=== PATIENT | male | born 1950 | race Caucasian/White ===

== ENCOUNTER → 2016-04-12 | Outpatient (REF) | payer MEDICARE, OTHER ==
[~2016-04-12] MED LIST: ACET65TA OR; ALBUTEROL INH; ASPI81TA11 PO; ATEN25TA; BABY81CH PO; BACITAB3 PO; BACT800T5 PO; BACTROBAN; COLA100C PO; COLC1TAB5 PO; CORE25TA PO; DOXY100T OR; FERR325T69 PO; FURO20TA2 PO; GLUC1000 PO; Garlic PO; HYDR12.56 PO; KEFL500C7 PO; Krill Oil; LASI40TA OR; LEVA500T; LEVO500T PO; LOPR50TA OR; LOSA25TA8 PO; LOSA50TA20 PO; LUCENTIS INJ; METF500T PO; METO25TAB PO; MULTCAP PO; NEUR300C OR; Niacin; OMEGCAP8 PO; OMEP20TA7 OR; PERCOCET PO; POTA20TA2 OR; SALI0.653; SENN-22 PO; SIMV40TA2 PO; VITA500C24 PO; WARF-23 PO; ZOCO20TA PO; ZYVO100T PO; [UNRECOGNIZED DRUG - OTHER]
[2016-04-12 17:34] LABS: ALBUMIN 3.6 GM/DL (3.2-5.2); ALKALINE PHOSPHATASE 96 U/L (45-117); ALT/SGPT 19 U/L (12-78); ANION GAP 9 MEQ/L (8-16); AST/SGOT 12 U/L (15-37); BILIRUBIN,TOTAL 0.3 MG/DL (0.2-1.0); BLOOD UREA NITROGEN 25 MG/DL (7-18); CALCIUM LEVEL 8.9 MG/DL (8.8-10.2); CARBON DIOXIDE LEVEL 26 MEQ/L (21-32); CHLORIDE LEVEL 106 MEQ/L (98-107); CREATININE FOR GFR 1.12 MG/DL (0.70-1.30); GLOMERULAR FILTRATION RATE > 60.0 (>49); GLUCOSE, FASTING 196 MG/DL (80-110); POTASSIUM SERUM 4.9 MEQ/L (3.5-5.1); SODIUM LEVEL 141 MEQ/L (136-145); TOTAL PROTEIN 7.6 GM/DL (6.4-8.2); URIC ACID 8.3 MG/DL (3.5-7.2)
[2016-04-12 18:17] LABS: BASO % 0.3 % (0.0-1.0); EOS # 0.2 K/mm3 (0.0-0.50); EOS % 2.1 % (0.0-3.0); LARGE UNSTAINED CELL # 0.1 K/mm3 (0.0-0.4); LARGE UNSTAINED CELL % 0.9 % (0.0-4.0); LYMPH # 2.5 K/mm3 (1.5-4.5); LYMPH % 20.4 % (24.0-44.0); MEAN CORPUSCULAR HEMOGLOBIN 29.2 pg (27.0-33.0); MEAN CORPUSCULAR HGB CONC 33.2 g/dl (32.0-36.5); MEAN CORPUSCULAR VOLUME 87.8 fl (80.0-96.0); MONO # 0.8 K/mm3 (0.0-0.8); MONO % 6.6 % (0.0-5.0); NEUTROPHILS # 8.3 K/mm3 (1.8-7.7); NEUTROPHILS % 69.7 % (36.0-66.0); PLATELET COUNT, AUTOMATED 317 k/mm3 (150-450); RED CELL DISTRIBUTION WIDTH 12.9 % (11.5-14.5); WHITE BLOOD COUNT 11.9 K/mm3 (4.0-10.0)
== END ==
LOC: M SFHCCLAY 13:29
PROVIDERS: ATTEND Family Medicine
DX: D64.9 Anemia, unspecified (principal); E11.29 Type 2 diabetes mellitus with other diabetic kidney complication; M10.9 Gout, unspecified
CPT/HCPCS: 80053; 83036; 83540; 84550; 85025; G0463

== ENCOUNTER → 2016-09-15 | Outpatient (REF) | payer MEDICARE, OTHER ==
[~2016-09-15] MED LIST changes: +ASPI-101 PO; -ASPI81TA11 PO; +BACITAB PO; -BACITAB3 PO; -COLA100C PO; +COLA100C5 PO; +COLC1TAB14 PO; -COLC1TAB5 PO; +KEFL500C17 PO; -KEFL500C7 PO; -METF500T PO; +METF500T13 PO; +SALI0.6523; -SALI0.653
== END ==
LOC: M SFHCCLAY 14:34
PROVIDERS: ATTEND Family Medicine
DX: D64.9 Anemia, unspecified (principal); E11.29 Type 2 diabetes mellitus with other diabetic kidney complication

== ENCOUNTER → 2016-12-26 | Outpatient (CLI) | payer MEDICARE, OTHER ==
[2016-12-26 11:49] LABS: BASO # 0.1 10^3/uL (0.0-0.2); BASO % 0.4 % (0.0-1.0); EOS # 0.3 10^3/uL (0.0-0.50); IMMATURE GRANULOCYTE % 0.5 % (0-0); LYMPH # 3.5 10^3/uL (1.5-4.5); LYMPH % 27.7 % (24.0-44.0); MEAN CORPUSCULAR HEMOGLOBIN 28.5 pg (27.0-33.0); MEAN CORPUSCULAR HGB CONC 32.8 g/dl (32.0-36.5); MONO % 7.7 % (0.0-5.0); NEUTROPHILS # 7.8 10^3/uL (1.8-7.7); NEUTROPHILS % 61.7 % (36.0-66.0); PLATELET COUNT, AUTOMATED 268 10^3/uL (150-450); RED CELL DISTRIBUTION WIDTH 12.9 % (11.5-14.5); WHITE BLOOD COUNT 12.6 10^3/uL (4.0-10.0)
[2016-12-26 12:16] LABS: ALBUMIN 3.6 GM/DL (3.2-5.2); ALBUMIN/GLOBULIN RATIO 0.92 (1.00-1.93); ALKALINE PHOSPHATASE 96 U/L (45-117); ALT/SGPT 16 U/L (12-78); ANION GAP 10 MEQ/L (8-16); AST/SGOT 6 U/L (7-37); BILIRUBIN,TOTAL 0.3 MG/DL (0.2-1.0); BLOOD UREA NITROGEN 24 MG/DL (7-18); CALCIUM LEVEL 8.9 MG/DL (8.8-10.2); CARBON DIOXIDE LEVEL 23 MEQ/L (21-32); CHLORIDE LEVEL 108 MEQ/L (98-107); CREATININE FOR GFR 1.06 MG/DL (0.70-1.30); GLOMERULAR FILTRATION RATE > 60.0 (>49); GLUCOSE, FASTING 155 MG/DL (80-110); POTASSIUM SERUM 4.7 MEQ/L (3.5-5.1); SODIUM LEVEL 141 MEQ/L (136-145); TOTAL PROTEIN 7.5 GM/DL (6.4-8.2)
== END ==
LOC: M LAB 10:43
PROVIDERS: ATTEND Family Medicine
DX: D64.9 Anemia, unspecified (principal); E11.29 Type 2 diabetes mellitus with other diabetic kidney complication; N18.9 Chronic kidney disease, unspecified

== ENCOUNTER → 2017-05-08 | Outpatient (REF) | payer MEDICARE, OTHER ==
[2017-05-09 12:34] LABS: BASO # 0.1 10^3/uL (0.0-0.2); BASO % 0.5 % (0.0-1.0); EOS # 0.3 10^3/uL (0.0-0.50); EOS % 2.3 % (0.0-3.0); HEMATOCRIT 36.4 % (42.0-52.0); IMMATURE GRANULOCYTE % 0.5 % (0-3.0); LYMPH # 3.4 10^3/uL (1.5-4.5); LYMPH % 27.8 % (24.0-44.0); MEAN CORPUSCULAR HEMOGLOBIN 28.9 pg (27.0-33.0); MEAN CORPUSCULAR VOLUME 87.7 fl (80.0-96.0); MONO % 7.8 % (0.0-5.0); NEUTROPHILS # 7.5 10^3/uL (1.8-7.7); NEUTROPHILS % 61.1 % (36.0-66.0); PLATELET COUNT, AUTOMATED 257 10^3/uL (150-450); RED BLOOD COUNT 4.15 10^6/uL (4.30-6.10); RED CELL DISTRIBUTION WIDTH 12.8 % (11.5-14.5); WHITE BLOOD COUNT 12.3 10^3/uL (4.0-10.0)
[2017-05-09 13:14] LABS: ESTIMATED AVERAGE GLUCOSE 209 MG/DL (60-110); HEMOGLOBIN A1c 8.9 %
[2017-05-09 13:47] LABS: ALBUMIN 3.7 GM/DL (3.2-5.2); ALBUMIN/GLOBULIN RATIO 0.97 (1.00-1.93); ALKALINE PHOSPHATASE 82 U/L (45-117); ALT/SGPT 21 U/L (12-78); ANION GAP 12 MEQ/L (8-16); AST/SGOT 12 U/L (7-37); BILIRUBIN,TOTAL 0.3 MG/DL (0.2-1.0); BLOOD UREA NITROGEN 22 MG/DL (7-18); CALCIUM LEVEL 9.2 MG/DL (8.8-10.2); CARBON DIOXIDE LEVEL 21 MEQ/L (21-32); CHLORIDE LEVEL 105 MEQ/L (98-107); CHOLESTEROL LEVEL 91 MG/DL (<200); GLOMERULAR FILTRATION RATE > 60.0 (>49); GLUCOSE, FASTING 188 MG/DL (70-100); HDL CHOLESTEROL 26 MG/DL (>40); IRON (FE) 59 UG/DL (65-175); LDL CHOLESTEROL 28.8 MG/DL (<100); NON-HDL-C 65 MG/DL; SODIUM LEVEL 138 MEQ/L (136-145); TOTAL PROTEIN 7.5 GM/DL (6.4-8.2); TRIGLYCERIDES LEVEL 181 MG/DL (<150); URIC ACID 9.4 MG/DL (3.5-7.2)
[2017-05-09 13:51] LABS: POTASSIUM SERUM 5.3 MEQ/L (3.5-5.1)
== END ==
LOC: M SFHCCLAY 14:58
DX: D64.9 Anemia, unspecified (principal); E11.29 Type 2 diabetes mellitus with other diabetic kidney complication; M10.9 Gout, unspecified
CPT/HCPCS: 83540

== ENCOUNTER → 2017-05-08 | Outpatient (REF) | payer MEDICARE, OTHER ==
[2017-05-09 13:29] LABS: BLOOD UREA NITROGEN 21 MG/DL (7-18)
[2017-05-09 13:29] LABS: CREATININE FOR GFR 1.07 MG/DL (0.70-1.30); GLOMERULAR FILTRATION RATE > 60.0 (>49)
== END ==
LOC: M SFHCCLAY 05-09 11:31
DX: M10.9 Gout, unspecified (principal); D64.9 Anemia, unspecified; E11.29 Type 2 diabetes mellitus with other diabetic kidney complication; I70.211 Atherosclerosis of native arteries of extremities with intermittent claudication, right leg

== ENCOUNTER → 2017-05-08 | Outpatient (REF) | payer MEDICARE, OTHER ==
[2017-05-09 12:36] LABS: HEMATOCRIT 36.4 % (42.0-52.0); MEAN CORPUSCULAR HEMOGLOBIN 28.9 pg (27.0-33.0); MEAN CORPUSCULAR VOLUME 87.7 fl (80.0-96.0); PLATELET COUNT, AUTOMATED 249 10^3/uL (150-450); RED BLOOD COUNT 4.15 10^6/uL (4.30-6.10); RED CELL DISTRIBUTION WIDTH 12.9 % (11.5-14.5); WHITE BLOOD COUNT 11.8 10^3/uL (4.0-10.0)
[2017-05-09 13:34] LABS: ANION GAP 13 MEQ/L (8-16); BLOOD UREA NITROGEN 21 MG/DL (7-18); CALCIUM LEVEL 8.9 MG/DL (8.8-10.2); CARBON DIOXIDE LEVEL 20 MEQ/L (21-32); CHLORIDE LEVEL 106 MEQ/L (98-107); CHOLESTEROL LEVEL 84 MG/DL (<200); CREATININE FOR GFR 1.11 MG/DL (0.70-1.30); GLOMERULAR FILTRATION RATE > 60.0 (>49); GLUCOSE, FASTING 187 MG/DL (70-100); HDL CHOLESTEROL 26 MG/DL (>40); LDL CHOLESTEROL 21.4 MG/DL (<100); NON-HDL-C 58 MG/DL; SODIUM LEVEL 139 MEQ/L (136-145); TRIGLYCERIDES LEVEL 183 MG/DL (<150)
[2017-05-09 13:37] LABS: POTASSIUM SERUM 5.3 MEQ/L (3.5-5.1)
== END ==
LOC: M LAB REF 05-09 11:41
DX: I73.9 Peripheral vascular disease, unspecified (principal); E11.51 Type 2 diabetes mellitus with diabetic peripheral angiopathy without gangrene; I48.0 Paroxysmal atrial fibrillation; I10 Essential (primary) hypertension; E78.5 Hyperlipidemia, unspecified; Z95.5 Presence of coronary angioplasty implant and graft

== ENCOUNTER → 2017-05-19 | Outpatient (CLI) | payer MEDICARE, OTHER ==
[2017-05-19 13:05] LABS: BLOOD UREA NITROGEN 22 MG/DL (7-18)
[2017-05-19 13:05] LABS: CREATININE FOR GFR 1.12 MG/DL (0.70-1.30); GLOMERULAR FILTRATION RATE > 60.0 (>49)
== END ==
LOC: M LAB 11:25
DX: I65.23 Occlusion and stenosis of bilateral carotid arteries (principal)
CPT/HCPCS: 82565

== ENCOUNTER → 2017-09-01 | Outpatient (REF) | payer MEDICARE, OTHER ==
[2017-09-01 17:37] LABS: ANION GAP 10 MEQ/L (8-16); BLOOD UREA NITROGEN 25 MG/DL (7-18); CALCIUM LEVEL 9.1 MG/DL (8.8-10.2); CARBON DIOXIDE LEVEL 25 MEQ/L (21-32); CHLORIDE LEVEL 104 MEQ/L (98-107); GLOMERULAR FILTRATION RATE 58.4 (>49); GLUCOSE, FASTING 296 MG/DL (70-100); SODIUM LEVEL 139 MEQ/L (136-145)
[2017-09-01 17:42] LABS: ESTIMATED AVERAGE GLUCOSE 192 MG/DL (60-110); HEMOGLOBIN A1c 8.3 %
== END ==
LOC: M SFHCCLAY 10:39
DX: E11.29 Type 2 diabetes mellitus with other diabetic kidney complication (principal)
CPT/HCPCS: 83036

== ENCOUNTER → 2017-12-19 | Outpatient (REF) | payer MEDICARE, OTHER | LOC: M SFHCCLAY 15:52 | DX: E11.29 Type 2 diabetes mellitus with other diabetic kidney complication (principal); D64.9 Anemia, unspecified; M10.9 Gout, unspecified; Z53.8 Procedure and treatment not carried out for other reasons ==

== ENCOUNTER → 2018-06-04 | Outpatient (REF) | payer MEDICARE, OTHER ==
[~2018-06-04] MED LIST changes: -ASPI-101 PO; +ASPI-225 PO; +LOSA25TA14 PO; -LOSA25TA8 PO; -LOSA50TA20 PO; +LOSA50TA88 PO; +METO-346 PO; +METO1TAB63 PO; -METO25TAB PO; -SALI0.6523; +SALI0.6528; -ZYVO100T PO; +ZYVO1TAB PO
[2018-06-05 11:16] LABS: BASO # 0.1 10^3/uL (0.0-0.2); BASO % 0.4 % (0.0-1.0); EOS # 0.4 10^3/uL (0.0-0.50); EOS % 2.7 % (0.0-3.0); HEMOGLOBIN 11.9 g/dl (13.5-17.5); LYMPH # 3.4 10^3/uL (1.5-4.5); LYMPH % 25.7 % (24.0-44.0); MEAN CORPUSCULAR HEMOGLOBIN 29.2 pg (27.0-33.0); MEAN CORPUSCULAR HGB CONC 33.1 g/dl (32.0-36.5); MEAN CORPUSCULAR VOLUME 88.2 fl (80.0-96.0); MONO % 7.1 % (0.0-5.0); NEUTROPHILS # 8.5 10^3/uL (1.8-7.7); NEUTROPHILS % 63.6 % (36.0-66.0); PLATELET COUNT, AUTOMATED 272 10^3/uL (150-450); RED BLOOD COUNT 4.08 10^6/uL (4.30-6.10); WHITE BLOOD COUNT 13.3 10^3/uL (4.0-10.0)
[2018-06-05 11:39] LABS: HEMOGLOBIN A1c 8.9 %
[2018-06-05 11:46] LABS: ALBUMIN 3.8 GM/DL (3.2-5.2); ALT/SGPT 21 U/L (12-78); BILIRUBIN,TOTAL 0.2 MG/DL (0.2-1.0); BLOOD UREA NITROGEN 27 MG/DL (7-18); CARBON DIOXIDE LEVEL 24 MEQ/L (21-32); CHLORIDE LEVEL 106 MEQ/L (98-107); CHOLESTEROL LEVEL 86 MG/DL (<200); CHOLESTEROL RISK RATIO 3.307 (<5); CREATININE FOR GFR 1.13 MG/DL (0.70-1.30); GLOMERULAR FILTRATION RATE > 60.0 (>49); GLUCOSE, FASTING 250 MG/DL (70-100); HDL CHOLESTEROL 26 MG/DL (>40); IRON (FE) 56 UG/DL (65-175); LDL CHOLESTEROL 3 MG/DL (<100); NON-HDL-C 60 MG/DL; POTASSIUM SERUM 5.9 MEQ/L (3.5-5.1); SODIUM LEVEL 139 MEQ/L (136-145); TOTAL PROTEIN 7.6 GM/DL (6.4-8.2); TRIGLYCERIDES LEVEL 287 MG/DL (<150)
== END ==
LOC: M SFHCCLAY 14:56
PROVIDERS: ATTEND Family Medicine
DX: D64.9 Anemia, unspecified (principal); E11.29 Type 2 diabetes mellitus with other diabetic kidney complication
CPT/HCPCS: 80053; 80061; 83036; 83540; 85025; G0463

== ENCOUNTER → 2018-12-04 | Outpatient (REF) | payer MEDICARE, OTHER ==
[2018-12-04 17:49] LABS: BASO # 0.1 10^3/uL (0.0-0.2); BASO % 0.5 % (0.0-1.0); EOS # 0.5 10^3/uL (0.0-0.5); EOS % 3.5 % (0.0-3.0); HEMATOCRIT 39.2 % (42.0-52.0); HEMOGLOBIN 12.5 g/dl (13.5-17.5); LYMPH % 22.5 % (24.0-44.0); MEAN CORPUSCULAR HEMOGLOBIN 28.7 pg (27.0-33.0); MEAN CORPUSCULAR HGB CONC 31.9 g/dl (32.0-36.5); MEAN CORPUSCULAR VOLUME 89.9 fl (80.0-96.0); MONO % 7.6 % (0.0-5.0); NEUTROPHILS # 8.7 10^3/uL (1.5-8.5); NEUTROPHILS % 65.4 % (36.0-66.0); PLATELET COUNT, AUTOMATED 325 10^3/uL (150-450); RED BLOOD COUNT 4.36 10^6/uL (4.30-6.10); WHITE BLOOD COUNT 13.3 10^3/uL (4.0-10.0)
[2018-12-04 17:56] LABS: ALBUMIN 3.7 GM/DL (3.2-5.2); ALT/SGPT 20 U/L (12-78); BILIRUBIN,TOTAL 0.3 MG/DL (0.2-1.0); BLOOD UREA NITROGEN 21 MG/DL (7-18); CALCIUM LEVEL 9.5 MG/DL (8.8-10.2); CARBON DIOXIDE LEVEL 25 MEQ/L (21-32); CHLORIDE LEVEL 105 MEQ/L (98-107); CHOLESTEROL LEVEL 80 MG/DL (<200); CREATININE FOR GFR 1.07 MG/DL (0.70-1.30); GLOMERULAR FILTRATION RATE > 60.0 (>49); GLUCOSE, FASTING 173 MG/DL (70-100); HDL CHOLESTEROL 25 MG/DL (>40); IRON (FE) 55 UG/DL (65-175); LDL CHOLESTEROL 9 MG/DL (<100); NON-HDL-C 55 MG/DL; POTASSIUM SERUM 5.2 MEQ/L (3.5-5.1); SODIUM LEVEL 139 MEQ/L (136-145); TOTAL PROTEIN 7.8 GM/DL (6.4-8.2); TRIGLYCERIDES LEVEL 229 MG/DL (<150); URIC ACID 8.6 MG/DL (3.5-7.2)
[2018-12-04 18:06] LABS: HEMOGLOBIN A1c 8.3 %
== END ==
LOC: M SFHCCLAY 09:45
PROVIDERS: ATTEND Family Medicine
DX: E11.29 Type 2 diabetes mellitus with other diabetic kidney complication (principal); D64.9 Anemia, unspecified; M10.9 Gout, unspecified
CPT/HCPCS: 80053; 80061; 83036; 83540; 84550; 85025; 90682; G0008; G0463

== ENCOUNTER → 2019-03-11 | Outpatient (REF) | payer MEDICARE, OTHER ==
[~2019-03-11] MED LIST changes: -ASPI-225 PO; +ASPI81TA78 PO; -SIMV40TA2 PO; +SIMV40TA20 PO
[2019-03-12 11:48] LABS: BASO # 0.1 10^3/uL (0.0-0.2); BASO % 0.4 % (0.0-1.0); EOS # 0.5 10^3/uL (0.0-0.5); EOS % 4.6 % (0.0-3.0); HEMATOCRIT 37.6 % (42.0-52.0); HEMOGLOBIN 11.8 g/dl (13.5-17.5); LYMPH # 2.6 10^3/uL (1.5-5.0); LYMPH % 22.8 % (24.0-44.0); MEAN CORPUSCULAR HEMOGLOBIN 28.1 pg (27.0-33.0); MEAN CORPUSCULAR HGB CONC 31.4 g/dl (32.0-36.5); MEAN CORPUSCULAR VOLUME 89.5 fl (80.0-96.0); MONO # 0.9 10^3/uL (0.0-0.8); NEUTROPHILS # 7.1 10^3/uL (1.5-8.5); NEUTROPHILS % 63.8 % (36.0-66.0); PLATELET COUNT, AUTOMATED 281 10^3/uL (150-450); WHITE BLOOD COUNT 11.2 10^3/uL (4.0-10.0)
[2019-03-12 12:01] LABS: ALBUMIN 3.6 GM/DL (3.2-5.2); ALT/SGPT 17 U/L (12-78); BILIRUBIN,TOTAL 0.4 MG/DL (0.2-1.0); BLOOD UREA NITROGEN 19 MG/DL (7-18); CALCIUM LEVEL 9.4 MG/DL (8.8-10.2); CARBON DIOXIDE LEVEL 23 MEQ/L (21-32); CHLORIDE LEVEL 106 MEQ/L (98-107); CREATININE FOR GFR 0.92 MG/DL (0.70-1.30); GLOMERULAR FILTRATION RATE > 60.0 (>42); GLUCOSE, FASTING 196 MG/DL (70-100); IRON (FE) 62 UG/DL (65-175); POTASSIUM SERUM 5.3 MEQ/L (3.5-5.1); SODIUM LEVEL 137 MEQ/L (136-145); TOTAL PROTEIN 7.5 GM/DL (6.4-8.2); URIC ACID 9.4 MG/DL (3.5-7.2)
[2019-03-12 14:40] LABS: HEMOGLOBIN A1c 8.6 %
== END ==
LOC: M SFHCCLAY 13:58
PROVIDERS: ATTEND Family Medicine
DX: E11.29 Type 2 diabetes mellitus with other diabetic kidney complication (principal); D64.9 Anemia, unspecified; M10.9 Gout, unspecified
CPT/HCPCS: 80053; 83036; 83540; 84550; 85025; G0463

== ENCOUNTER → 2020-10-08 | Outpatient (REF) | payer MEDICARE | LOC: M SFHCCLAY 14:36 | PROVIDERS: ATTEND Family Medicine | DX: D04.4 Carcinoma in situ of skin of scalp and neck (principal) ==

== ENCOUNTER → 2020-11-17 | Outpatient (REF) | payer MEDICARE ==
[2020-11-17 16:45] LABS: BASO % 0.3 % (0.0-1.0); EOS # 0.3 10^3/uL (0.0-0.5); EOS % 1.9 % (0.0-3.0); HEMATOCRIT 36.1 % (42.0-52.0); HEMOGLOBIN 11.6 g/dl (13.5-17.5); LYMPH # 3.1 10^3/uL (1.5-5.0); LYMPH % 23.5 % (24.0-44.0); MEAN CORPUSCULAR HEMOGLOBIN 28.6 pg (27.0-33.0); MEAN CORPUSCULAR HGB CONC 32.1 g/dl (32.0-36.5); MEAN CORPUSCULAR VOLUME 89.1 fl (80.0-96.0); MONO % 7.8 % (2.0-8.0); NEUTROPHILS # 8.6 10^3/uL (1.5-8.5); PLATELET COUNT, AUTOMATED 264 10^3/uL (150-450); RED BLOOD COUNT 4.05 10^6/uL (4.30-6.10)
[2020-11-17 16:46] LABS: ALBUMIN 3.3 GM/DL (3.2-5.2); ALT/SGPT 18 U/L (12-78); BILIRUBIN,TOTAL 0.3 MG/DL (0.2-1.0); BLOOD UREA NITROGEN 27 MG/DL (7-18); CALCIUM LEVEL 9.3 MG/DL (8.8-10.2); CARBON DIOXIDE LEVEL 25 MEQ/L (21-32); CHLORIDE LEVEL 105 MEQ/L (98-107); CHOLESTEROL LEVEL 77 MG/DL (<200); CREATININE FOR GFR 1.26 MG/DL (0.70-1.30); GLOMERULAR FILTRATION RATE > 60.0 (>42); GLUCOSE, FASTING 291 MG/DL (70-100); HDL CHOLESTEROL 25 MG/DL (>40); IRON (FE) 45 UG/DL (65-175); LDL CHOLESTEROL 11 MG/DL (<100); NON-HDL-C 52 MG/DL; POTASSIUM SERUM 4.9 MEQ/L (3.5-5.1); SODIUM LEVEL 137 MEQ/L (136-145); TOTAL PROTEIN 7.2 GM/DL (6.4-8.2); TRIGLYCERIDES LEVEL 206 MG/DL (<150)
[2020-11-17 17:24] LABS: HEMOGLOBIN A1c 8.3 %
== END ==
LOC: M SFHCCLAY 12:08
PROVIDERS: ATTEND Family Medicine
DX: D64.9 Anemia, unspecified (principal); E11.29 Type 2 diabetes mellitus with other diabetic kidney complication; M10.9 Gout, unspecified; I10 Essential (primary) hypertension; L97.911 Non-pressure chronic ulcer of unspecified part of right lower leg limited to breakdown of skin; H61.23 Impacted cerumen, bilateral
CPT/HCPCS: 80053; 80061; 83036; 83540; 84443; 84550; 85025; G0463

== ENCOUNTER → 2021-01-13 | Outpatient (REF) | payer MEDICARE, OTHER | LOC: M LAB REF 17:13 | PROVIDERS: ATTEND Dermatology | DX: C43.61 Malignant melanoma of right upper limb, including shoulder (principal) | CPT/HCPCS: 14021; 15220; 17311; 17312; 88305; G0463 ==

== ENCOUNTER → 2021-01-20 | Outpatient (REF) | payer MEDICARE | LOC: M LAB REF 16:31 | PROVIDERS: ATTEND Dermatology | DX: Z48.02 Encounter for removal of sutures (principal) ==

== ENCOUNTER → 2021-01-29 | Outpatient (REF) | payer MEDICARE | LOC: M LAB REF 14:39 | PROVIDERS: ATTEND Dermatology | DX: D23.61 Other benign neoplasm of skin of right upper limb, including shoulder (principal) ==

== ENCOUNTER → 2021-02-04 | Outpatient (REF) | payer MEDICARE ==
[~2021-02-04] MED LIST changes: +LOSA25TA13 PO; -LOSA25TA14 PO; +LOSA50TA28 PO; -LOSA50TA88 PO
[2021-02-05 11:38] LABS: BASO # 0.1 10^3/uL (0.0-0.2); BASO % 0.4 % (0.0-1.0); EOS # 0.6 10^3/uL (0.0-0.5); EOS % 4.7 % (0.0-3.0); HEMATOCRIT 34.4 % (42.0-52.0); HEMOGLOBIN 10.8 g/dl (13.5-17.5); LYMPH # 3.4 10^3/uL (1.5-5.0); LYMPH % 26.6 % (24.0-44.0); MEAN CORPUSCULAR HEMOGLOBIN 28.2 pg (27.0-33.0); MEAN CORPUSCULAR HGB CONC 31.4 g/dl (32.0-36.5); MEAN CORPUSCULAR VOLUME 89.8 fl (80.0-96.0); MONO # 0.9 10^3/uL (0.0-0.8); MONO % 7.4 % (2.0-8.0); NEUTROPHILS # 7.6 10^3/uL (1.5-8.5); NEUTROPHILS % 60.4 % (36.0-66.0); PLATELET COUNT, AUTOMATED 366 10^3/uL (150-450); RED BLOOD COUNT 3.83 10^6/uL (4.30-6.10); WHITE BLOOD COUNT 12.6 10^3/uL (4.0-10.0)
[2021-02-05 12:11] LABS: ALBUMIN 3.1 GM/DL (3.2-5.2); ALT/SGPT 17 U/L (12-78); BILIRUBIN,TOTAL 0.2 MG/DL (0.2-1.0); BLOOD UREA NITROGEN 19 MG/DL (7-18); CALCIUM LEVEL 9.3 MG/DL (8.8-10.2); CARBON DIOXIDE LEVEL 25 MEQ/L (21-32); CHLORIDE LEVEL 103 MEQ/L (98-107); CHOLESTEROL LEVEL 83 MG/DL (<200); CHOLESTEROL RISK RATIO 3.608 (<5); CREATININE FOR GFR 1.14 MG/DL (0.70-1.30); GLOMERULAR FILTRATION RATE > 60.0 (>42); GLUCOSE, FASTING 370 MG/DL (70-100); HDL CHOLESTEROL 23 MG/DL (>40); IRON (FE) 43 UG/DL (65-175); LDL CHOLESTEROL 15 MG/DL (<100); NON-HDL-C 60 MG/DL; POTASSIUM SERUM 5.5 MEQ/L (3.5-5.1); SODIUM LEVEL 137 MEQ/L (136-145); TOTAL PROTEIN 7.2 GM/DL (6.4-8.2); TRIGLYCERIDES LEVEL 225 MG/DL (<150)
[2021-02-05 12:59] LABS: HEMOGLOBIN A1c 8.4 %
== END ==
LOC: M SFHCCLAY 14:52
PROVIDERS: ATTEND Family Medicine
DX: E11.29 Type 2 diabetes mellitus with other diabetic kidney complication (principal); D64.9 Anemia, unspecified

== ENCOUNTER → 2021-06-01 | Outpatient (REF) | payer MEDICARE ==
[2021-06-02 11:40] LABS: BASO # 0.1 10^3/uL (0.0-0.2); BASO % 0.3 % (0.0-1.0); EOS # 0.3 10^3/uL (0.0-0.5); EOS % 1.9 % (0.0-3.0); HEMATOCRIT 29.4 % (42.0-52.0); HEMOGLOBIN 9.2 g/dl (13.5-17.5); LYMPH # 2.2 10^3/uL (1.5-5.0); LYMPH % 14.4 % (24.0-44.0); MEAN CORPUSCULAR HEMOGLOBIN 27.5 pg (27.0-33.0); MEAN CORPUSCULAR HGB CONC 31.3 g/dl (32.0-36.5); MONO # 1.3 10^3/uL (0.0-0.8); MONO % 8.3 % (2.0-8.0); NEUTROPHILS # 11.5 10^3/uL (1.5-8.5); NEUTROPHILS % 74.5 % (36.0-66.0); PLATELET COUNT, AUTOMATED 377 10^3/uL (150-450); RED BLOOD COUNT 3.34 10^6/uL (4.30-6.10); WHITE BLOOD COUNT 15.4 10^3/uL (4.0-10.0)
[2021-06-02 12:01] LABS: ALBUMIN 2.8 GM/DL (3.2-5.2); ALT/SGPT 15 U/L (12-78); BILIRUBIN,TOTAL 0.5 MG/DL (0.2-1.0); BLOOD UREA NITROGEN 27 MG/DL (7-18); CALCIUM LEVEL 8.9 MG/DL (8.8-10.2); CARBON DIOXIDE LEVEL 23 MEQ/L (21-32); CHLORIDE LEVEL 108 MEQ/L (98-107); CREATININE FOR GFR 1.15 MG/DL (0.70-1.30); GLOMERULAR FILTRATION RATE > 60.0 (>42); GLUCOSE, FASTING 197 MG/DL (70-100); IRON (FE) 26 UG/DL (65-175); SODIUM LEVEL 139 MEQ/L (136-145); TOTAL PROTEIN 7.1 GM/DL (6.4-8.2)
[2021-06-02 12:49] LABS: HEMOGLOBIN A1c 7.9 %
== END ==
LOC: M SFHCCLAY 14:16
PROVIDERS: ATTEND Family Medicine
DX: E11.29 Type 2 diabetes mellitus with other diabetic kidney complication (principal); M10.9 Gout, unspecified; D64.9 Anemia, unspecified

== ENCOUNTER 2021-07-11 00:33 | Emergency (ER) | payer MEDICARE ==
[~2021-07-11] VITALS: Ht 172.7 cm; Wt 117.7 kg
[2021-07-11 01:27] LABS: ABG BASE EXCESS -2.6 (-2.0-2.0); ABG HCO3 21.4 MEQ/L (22.0-26.0); ABG O2 SATURATION 94.6 % (95.0-99.0); ABG PARTIAL PRESSURE CO2 34.1 mmHg (35.0-45.0); ABG PARTIAL PRESSURE O2 77.6 mmHg (75.0-100.0); ABG STANDARD HCO3 22.2 MEQ/L (22.0-26.0); ABG TOTAL CO2 22.5 MEQ/L (23.0-31.0); ABG pH (ARTERIAL) 7.416 UNITS (7.350-7.450)
[2021-07-11 01:54] LABS: BASO % 0.3 % (0.0-1.0); EOS # 0.2 10^3/uL (0.0-0.5); EOS % 1.1 % (0.0-3.0); HEMATOCRIT 30.6 % (42.0-52.0); HEMOGLOBIN 9.5 g/dl (13.5-17.5); LYMPH % 12.4 % (24.0-44.0); MEAN CORPUSCULAR HEMOGLOBIN 27.6 pg (27.0-33.0); MONO # 1.4 10^3/uL (0.0-0.8); MONO % 8.8 % (2.0-8.0); NEUTROPHILS # 12.2 10^3/uL (1.5-8.5); NEUTROPHILS % 76.5 % (36.0-66.0); PLATELET COUNT, AUTOMATED 453 10^3/uL (150-450); RED BLOOD COUNT 3.44 10^6/uL (4.30-6.10); WHITE BLOOD COUNT 15.9 10^3/uL (4.0-10.0)
[2021-07-11 02:23] LABS: CK-MB VALUE MASS < 1.0 NG/ML (<3.6); CPK CREATINE PHOSPHOKINASE 16 U/L (39-308); MB/CK RELATIVE INDEX 6.25 (< OR =4)
[2021-07-11 02:27] LABS: ALBUMIN 2.8 GM/DL (3.2-5.2); BILIRUBIN,DIRECT 0.3 MG/DL (0.0-0.2); BILIRUBIN,TOTAL 0.8 MG/DL (0.2-1.0); CALCIUM LEVEL 8.8 MG/DL (8.8-10.2); CREATININE FOR GFR 1.28 MG/DL (0.70-1.30); GLOMERULAR FILTRATION RATE 58.8 (>42); POTASSIUM SERUM 5.6 MEQ/L (3.5-5.1); TOTAL PROTEIN 7.1 GM/DL (6.4-8.2)
[2021-07-11] MEDS ORDERED: K2 P1TAB PO (03:04)
[2021-07-11] MEDS ORDERED: ZOCO40TA PO (03:04)
[2021-07-11] MEDS ORDERED: CARV6.25 PO (03:04)
[2021-07-11] MEDS ORDERED: FERR32TA PO (03:04)
[2021-07-11] MEDS ORDERED: BAYE325T12 PO (03:04)
[2021-07-11] MEDS ORDERED: ZINC1TAB2 PO (03:04)
[2021-07-11] MEDS ORDERED: zinc PO (03:05)
[2021-07-11] MEDS ORDERED: HOME MED LIST COMPLETE! XX SCH (03:05)
[2021-07-11] MEDS ORDERED: VANCOMYCIN HCL 1,000 MG, VIAL MATE ADAPTER 1 EACH in NS 250 ML IV ONE ×2 (04:00→05:00)
[2021-07-11] MEDS ORDERED: FUROSEMIDE 100MG/10ML VIAL (J1940) IV ONE ×2 (04:05→17:20)
[2021-07-11] MEDS ORDERED: VANCOMYCIN HCL 2,000 MG in IV FLUID PLACE HOLDER 1 EA IV ONE (04:05)
[2021-07-11] MEDS ORDERED: VANCOMYCIN HCL 1,000 MG, VIAL MATE ADAPTER 1 EACH in NS 250 ML IV SCH (09:50)
[2021-07-11] MEDS: CARVedilol 6.25 MG TAB PO SCH ×2 (11:55→22:11)
[2021-07-11] MEDS: ASPIRIN 325 MG TAB PO SCH (11:55)
[2021-07-11] MEDS: ASCORBIC ACID 500 MG TAB PO SCH (11:55)
[2021-07-11] MEDS: FERROUS GLUCONATE 324 MG TAB PO SCH (11:55)
[2021-07-11 13:01] LABS: BASO % 0.2 % (0.0-1.0); EOS # 0.1 10^3/uL (0.0-0.5); EOS % 0.7 % (0.0-3.0); HEMATOCRIT 30.3 % (42.0-52.0); HEMOGLOBIN 9.3 g/dl (13.5-17.5); LYMPH # 1.7 10^3/uL (1.5-5.0); LYMPH % 10.3 % (24.0-44.0); MEAN CORPUSCULAR HEMOGLOBIN 27.4 pg (27.0-33.0); MEAN CORPUSCULAR HGB CONC 30.7 g/dl (32.0-36.5); MEAN CORPUSCULAR VOLUME 89.4 fl (80.0-96.0); MONO # 1.2 10^3/uL (0.0-0.8); NEUTROPHILS # 13.4 10^3/uL (1.5-8.5); NEUTROPHILS % 81.1 % (36.0-66.0); PLATELET COUNT, AUTOMATED 446 10^3/uL (150-450); RED BLOOD COUNT 3.39 10^6/uL (4.30-6.10); WHITE BLOOD COUNT 16.6 10^3/uL (4.0-10.0)
[2021-07-11 13:31] LABS: BLOOD UREA NITROGEN 33 MG/DL (7-18); CALCIUM LEVEL 8.8 MG/DL (8.8-10.2); CARBON DIOXIDE LEVEL 24 MEQ/L (21-32); CHLORIDE LEVEL 103 MEQ/L (98-107); CREATININE FOR GFR 1.03 MG/DL (0.70-1.30); GLOMERULAR FILTRATION RATE > 60.0 (>42); GLUCOSE, FASTING 180 MG/DL (70-100); NT-PRO BNP 7706 PG/ML (<125); POTASSIUM SERUM 4.7 MEQ/L (3.5-5.1); SODIUM LEVEL 135 MEQ/L (136-145)
[2021-07-11] MEDS: SILVER SULFADIAZINE 1% CR 50 GM JAR TOP SCH (16:57)
[2021-07-11] MEDS ORDERED: SIMVASTATIN 40 MG TAB PO SCH (21:00)
[2021-07-11] MEDS: VANCOMYCIN HCL 750 MG, VIAL MATE ADAPTER 1 EACH in NS 250 ML IV SCH (22:11)
[2021-07-12] MEDS ORDERED: GLUCOSE 4GM CHEW TABLET PO PRN (06:35)
[2021-07-12] MEDS ORDERED: GLUCAGON INJ 1MG VIAL SC PRN (06:35)
[2021-07-12] MEDS ORDERED: DEXTROSE 50% 50 ML SYRINGE IV PRN (06:35)
[2021-07-12] MEDS: HumaLOG INSULIN (NovoLOG) PER UNIT SC SCH ×3 (07:30→17:56)
[2021-07-12] MEDS: ASPIRIN 325 MG TAB PO SCH (09:39)
[2021-07-12] MEDS: ASCORBIC ACID 500 MG TAB PO SCH (09:39)
[2021-07-12 09:40] VITALS: BP 171/74
[2021-07-12] MEDS: FUROSEMIDE 40MG/4ML VIAL (J1940) IV SCH ×2 (09:40→17:00)
[2021-07-12] MEDS: CARVedilol 6.25 MG TAB PO SCH (09:40)
[2021-07-12] MEDS: VANCOMYCIN HCL 750 MG, VIAL MATE ADAPTER 1 EACH in NS 250 ML IV SCH (09:41)
[2021-07-12 10:36] LABS: HEMATOCRIT 31.8 % (42.0-52.0); HEMOGLOBIN 9.7 g/dl (13.5-17.5); MEAN CORPUSCULAR HEMOGLOBIN 27.7 pg (27.0-33.0); MEAN CORPUSCULAR HGB CONC 30.5 g/dl (32.0-36.5); MEAN CORPUSCULAR VOLUME 90.9 fl (80.0-96.0); PLATELET COUNT, AUTOMATED 494 10^3/uL (150-450); WHITE BLOOD COUNT 17.7 10^3/uL (4.0-10.0)
[2021-07-12 10:55] LABS: BLOOD UREA NITROGEN 32 MG/DL (7-18); CALCIUM LEVEL 8.9 MG/DL (8.8-10.2); CARBON DIOXIDE LEVEL 29 MEQ/L (21-32); CHLORIDE LEVEL 103 MEQ/L (98-107); CREATININE FOR GFR 1.21 MG/DL (0.70-1.30); GLOMERULAR FILTRATION RATE > 60.0 (>42); GLUCOSE, FASTING 161 MG/DL (70-100); POTASSIUM SERUM 4.7 MEQ/L (3.5-5.1); SODIUM LEVEL 135 MEQ/L (136-145)
[2021-07-12] MEDS: FERROUS GLUCONATE 324 MG TAB PO SCH (12:14)
[2021-07-12] MEDS: SILVER SULFADIAZINE 1% CR 50 GM JAR TOP SCH ×2 (17:00)
[2021-07-12 19:58] VITALS: BP 129/59
[2021-07-12] MEDS ORDERED: HumaLOG INSULIN (NovoLOG) PER UNIT SC SCH (21:00)
== END 2021-07-12 20:11 | disposition short-term general hospital (02) ==
LOC: M ED 00:33
DX: I50.21 Acute systolic (congestive) heart failure (principal); M86.9 Osteomyelitis, unspecified; I11.0 Hypertensive heart disease with heart failure; E78.5 Hyperlipidemia, unspecified; I25.10 Atherosclerotic heart disease of native coronary artery without angina pectoris; E11.9 Type 2 diabetes mellitus without complications; Z88.0 Allergy status to penicillin; Z88.1 Allergy status to other antibiotic agents; Z88.8 Allergy status to other drugs, medicaments and biological substances; Z79.899 Other long term (current) drug therapy
CPT/HCPCS: 36415; 36600; 71045; 80048; 80076; 82550; 82553; 82803; 83880; 84145; 84484; 85025; 85027; 87040; 87486; 87581; 87633; 87798; 93005; 93041; 94760; 96365; 96366; 96367; 96375; 99285; J1815; J1940; J3370

== ENCOUNTER → 2021-07-20 | Outpatient (REF) | payer MEDICARE ==
[~2021-07-20] MED LIST changes: +BAYE325T12 PO; +CARV6.25 PO; +FERR32TA PO; +K2 P1TAB PO; +ZINC1TAB2 PO; +ZOCO40TA PO; +zinc PO
== END ==
LOC: M LAB REF 16:03
PROVIDERS: ATTEND Podiatrist
DX: L03.115 Cellulitis of right lower limb (principal); E11.621 Type 2 diabetes mellitus with foot ulcer

== ENCOUNTER → 2021-08-04 | Outpatient (CLI) | payer MEDICARE ==
[2021-08-04 16:53] LABS: CREATININE FOR GFR 1.45 MG/DL (0.70-1.30); GLOMERULAR FILTRATION RATE 50.9 (>42); POTASSIUM SERUM 5.1 MEQ/L (3.5-5.1)
== END ==
LOC: M LAB 15:42
PROVIDERS: ATTEND Nurse Practitioner Family
DX: I50.20 Unspecified systolic (congestive) heart failure (principal)

== ENCOUNTER → 2021-08-23 | Outpatient (REF) | payer MEDICARE ==
[2021-08-23 17:31] LABS: ALBUMIN 2.7 GM/DL (3.2-5.2); BILIRUBIN,TOTAL 0.4 MG/DL (0.2-1.0); CALCIUM LEVEL 8.7 MG/DL (8.8-10.2); CREATININE FOR GFR 1.27 MG/DL (0.70-1.30); GLOMERULAR FILTRATION RATE 59.3 (>42); POTASSIUM SERUM 4.8 MEQ/L (3.5-5.1); TOTAL PROTEIN 7.6 GM/DL (6.4-8.2)
[2021-08-23 18:50] LABS: HEMOGLOBIN A1c 6.9 %
== END ==
LOC: M SFHCCLAY 15:11
PROVIDERS: ATTEND Family Medicine
DX: N18.31 Chronic kidney disease, stage 3a (principal); E11.29 Type 2 diabetes mellitus with other diabetic kidney complication

== ENCOUNTER → 2021-08-25 | Outpatient (REF) | payer MEDICARE | LOC: M LAB REF 14:25 | PROVIDERS: ATTEND Podiatrist | DX: M79.671 Pain in right foot (principal); L03.125 Acute lymphangitis of right lower limb ==

== ENCOUNTER → 2021-10-19 | Outpatient (REF) | payer MEDICARE ==
[2021-10-19 14:59] LABS: BASO % 0.4 % (0.0-1.0); EOS # 0.4 10^3/uL (0.0-0.5); EOS % 3.3 % (0.0-3.0); HEMATOCRIT 30.2 % (42.0-52.0); HEMOGLOBIN 9.3 g/dl (13.5-17.5); LYMPH # 2.1 10^3/uL (1.5-5.0); LYMPH % 20.1 % (24.0-44.0); MEAN CORPUSCULAR HEMOGLOBIN 27.6 pg (27.0-33.0); MEAN CORPUSCULAR HGB CONC 30.8 g/dl (32.0-36.5); MEAN CORPUSCULAR VOLUME 89.6 fl (80.0-96.0); MONO # 0.7 10^3/uL (0.0-0.8); MONO % 6.9 % (2.0-8.0); NEUTROPHILS # 7.3 10^3/uL (1.5-8.5); NEUTROPHILS % 68.8 % (36.0-66.0); PLATELET COUNT, AUTOMATED 386 10^3/uL (150-450); RED BLOOD COUNT 3.37 10^6/uL (4.30-6.10); WHITE BLOOD COUNT 10.6 10^3/uL (4.0-10.0)
[2021-10-19 15:42] LABS: ALBUMIN 3.1 GM/DL (3.2-5.2); ALT/SGPT 15 U/L (12-78); BILIRUBIN,TOTAL 0.4 MG/DL (0.2-1.0); BLOOD UREA NITROGEN 34 MG/DL (7-18); CALCIUM LEVEL 9.7 MG/DL (8.8-10.2); CARBON DIOXIDE LEVEL 31 MEQ/L (21-32); CHLORIDE LEVEL 96 MEQ/L (98-107); CREATININE FOR GFR 1.06 MG/DL (0.70-1.30); GLOMERULAR FILTRATION RATE > 60.0 (>42); GLUCOSE, FASTING 188 MG/DL (70-100); POTASSIUM SERUM 4.2 MEQ/L (3.5-5.1); SODIUM LEVEL 134 MEQ/L (136-145); TOTAL PROTEIN 7.8 GM/DL (6.4-8.2)
== END ==
LOC: M SHH 14:38
PROVIDERS: ATTEND Family Medicine
DX: I10 Essential (primary) hypertension (principal)

== ENCOUNTER → 2021-12-07 | Outpatient (REF) | payer MEDICARE | LOC: M SHH 15:04 | PROVIDERS: ATTEND Family Medicine | DX: R39.9 Unspecified symptoms and signs involving the genitourinary system (principal) ==

== ENCOUNTER → 2021-12-27 | Outpatient (REF) | payer MEDICARE | LOC: M SFHCCLAY 17:37 | PROVIDERS: ATTEND Family Medicine | DX: R39.9 Unspecified symptoms and signs involving the genitourinary system (principal) ==

== ENCOUNTER → 2022-05-17 | Outpatient (REF) | payer MEDICARE ==
[~2022-05-17] MED LIST changes: +SIMV-254 PO; -ZOCO40TA PO
== END ==
LOC: M SFHCDERM 17:05
PROVIDERS: ATTEND Nurse Practitioner Family
DX: C43.62 Malignant melanoma of left upper limb, including shoulder (principal)

== ENCOUNTER 2022-07-26 07:31 | Day surgery (SDC) | payer MEDICARE ==
[~2022-07-26] VITALS: Ht 172.7 cm; Wt 99.8 kg
[~2022-07-26 07:31] MED LIST changes: +BRIL90TA PO; +FURO40TA2 PO; +JARD1TAB PO; +POTA-150 PO; +TAMS1CAP17 PO; +ceFAZolin SOD 2 GM in IV 1 EA IV ONE
[2022-07-26] MEDS ORDERED: propofoL 200 MG/20 ML VIAL As Ordered ONE ×2 (07:51→08:24)
[2022-07-26] MEDS ORDERED: ONDANSETRON 4MG 2ML VIAL As Ordered ONE (07:51)
[2022-07-26] MEDS ORDERED: LIDOCAINE 2% 100MG/5ML SDV (FOR ANES.) As Ordered ONE (07:51)
[2022-07-26] MEDS ORDERED: KETOROLAC 60MG 2ML VIAL As Ordered ONE (07:51)
[2022-07-26] MEDS ORDERED: MIDAZOLAM INJ 2MG/2ML VIAL As Ordered ONE (08:25)
[2022-07-26] MEDS ORDERED: fentaNYL 100 MCG/2 ML INJECTION As Ordered ONE (08:25)
[2022-07-26] MEDS ORDERED: BUPIVACAINE/EPIN 0.25% 30ML VIAL As Ordered ONE (09:01)
[2022-07-26] MEDS ORDERED: ACETAMINOPHEN 1000MG 100ML IV BAG As Ordered ONE (09:23)
[2022-07-26 10:20] VITALS: BP 123/57; TEMP 97.2; O2SAT 96
== END 2022-07-26 10:48 | disposition home or self-care (01) ==
LOC: M SDC 07:31
PROVIDERS: ATTEND Surgery
DX: D03.62 Melanoma in situ of left upper limb, including shoulder (principal); E11.51 Type 2 diabetes mellitus with diabetic peripheral angiopathy without gangrene; D64.9 Anemia, unspecified; M10.9 Gout, unspecified; I73.9 Peripheral vascular disease, unspecified; M19.90 Unspecified osteoarthritis, unspecified site; N40.0 Benign prostatic hyperplasia without lower urinary tract symptoms; G47.30 Sleep apnea, unspecified; Z95.1 Presence of aortocoronary bypass graft; Z95.5 Presence of coronary angioplasty implant and graft; I25.10 Atherosclerotic heart disease of native coronary artery without angina pectoris; I10 Essential (primary) hypertension; Z88.1 Allergy status to other antibiotic agents; Z88.0 Allergy status to penicillin; Z88.8 Allergy status to other drugs, medicaments and biological substances; Z91.040 Latex allergy status; Z79.899 Other long term (current) drug therapy; Z79.01 Long term (current) use of anticoagulants; Z79.84 Long term (current) use of oral hypoglycemic drugs; Z79.82 Long term (current) use of aspirin
CPT/HCPCS: 11606; 12034; 88305; J0131; J0690; J1885; J2250; J2405; J3010

== ENCOUNTER 2022-09-11 20:47 | Inpatient (IN) | payer MEDICARE ==
[~2022-09-11] VITALS: Ht 172.7 cm; Wt 100.8 kg
[~2022-09-11 20:47] MED LIST changes: -ceFAZolin SOD 2 GM in IV 1 EA IV ONE
[2022-09-11 22:37] LABS: VENOUS BASE EXCESS -4.6 (-2.0-2.0); VENOUS HCO3 20.5 MMOL/L (23.0-27.0); VENOUS O2 SATURATION 78.3 % (60.0-80.0); VENOUS PARTIAL PRESSURE O2 47.2 mmHg (30.0-50.0); VENOUS STANDARD HCO3 20.3 MMOL/L; VENOUS TOTAL CO2 21.7 MMOL/L (24.0-28.0)
[2022-09-11 22:42] LABS: BASO # 0.1 10^3/uL (0.0-0.2); BASO % 0.4 % (0.0-1.0); EOS # 0.1 10^3/uL (0.0-0.5); EOS % 1.1 % (0.0-3.0); HEMATOCRIT 37.7 % (42.0-52.0); HEMOGLOBIN 11.9 g/dl (13.5-17.5); LYMPH # 2.1 10^3/uL (1.5-5.0); LYMPH % 16.1 % (24.0-44.0); MEAN CORPUSCULAR HEMOGLOBIN 29.8 pg (27.0-33.0); MEAN CORPUSCULAR HGB CONC 31.6 g/dl (32.0-36.5); MEAN CORPUSCULAR VOLUME 94.3 fl (80.0-96.0); MONO # 0.9 10^3/uL (0.0-0.8); MONO % 7.1 % (2.0-8.0); NEUTROPHILS # 9.8 10^3/uL (1.5-8.5); NEUTROPHILS % 74.9 % (36.0-66.0); PLATELET COUNT, AUTOMATED 238 10^3/uL (150-450)
[2022-09-11 22:53] LABS: INR 1.15; PROTHROMBIN TIME 14.9 SECONDS (12.5-14.5)
[2022-09-11 23:14] LABS: ALBUMIN 3.5 G/DL (3.2-5.2); ALKALINE PHOSPHATASE 148 U/L (46-116); ALT/SGPT 12 U/L (7.0-40); AST/SGOT 12 U/L (<34); BILIRUBIN,DIRECT 0.6 MG/DL (<0.4); BILIRUBIN,TOTAL 1.3 MG/DL (0.3-1.2); BLOOD UREA NITROGEN 40 MG/DL (9-23); CALCIUM LEVEL 8.6 MG/DL (8.3-10.6); CARBON DIOXIDE LEVEL 21 MMOL/L (20-31); CHLORIDE LEVEL 105 MMOL/L (98-107); CK-MB VALUE MASS < 1.0 NG/ML (<3.6); CPK CREATINE PHOSPHOKINASE 28 U/L (46-171); CREATININE FOR GFR 1.35 MG/DL (0.70-1.30); GLOMERULAR FILTRATION RATE 55.2 (>42); GLUCOSE, FASTING 186 MG/DL (74-106); MB/CK RELATIVE INDEX 3.57 (< OR =4); POTASSIUM SERUM 5.4 MMOL/L (3.5-5.1); SODIUM LEVEL 135 MMOL/L (136-145); TOTAL PROTEIN 6.7 G/DL (5.7-8.2)
[2022-09-11 23:18] LABS: THYROID STIMULATING HORMONE 3.006 uIU/ML (0.55-4.78)
[2022-09-11 23:27] LABS: PROCALCITONIN 0.17 ng/ml
[2022-09-11] MEDS ORDERED: ISOVUE-370 76% 100ML VIAL As Ordered ONE (23:36)
[2022-09-12 00:11] LABS: CK-MB VALUE MASS < 1.0 NG/ML (<3.6)
[2022-09-12 00:20] LABS: CPK CREATINE PHOSPHOKINASE 30 U/L (46-171); MB/CK RELATIVE INDEX 3.33 (< OR =4)
[2022-09-12] MEDS ORDERED: FUROSEMIDE 40MG/4ML VIAL IV ONE (01:00)
[2022-09-12] MEDS ORDERED: ATOR40TA75 PO (01:27)
[2022-09-12] MEDS ORDERED: ASPI81CH33 PO (01:27)
[2022-09-12] MEDS ORDERED: NYST1POW9 TOP (01:27)
[2022-09-12] MEDS ORDERED: TRAZ-252 PO (01:27)
[2022-09-12] MEDS ORDERED: VITA500C24 PO (01:27)
[2022-09-12] MEDS ORDERED: GLUCAGON INJ 1MG VIAL SC PRN (01:30)
[2022-09-12] MEDS ORDERED: NYSTATIN 100,000 UNITS/GM TOPICAL PWD 15GM TOP PRN (01:30)
[2022-09-12] MEDS ORDERED: GLUCOSE 4GM CHEW TABLET PO PRN (01:30)
[2022-09-12] MEDS ORDERED: DEXTROSE 50% 50ML SYRINGE IV PRN (01:30)
[2022-09-12] MEDS ORDERED: HOME MED LIST COMPLETE! XX SCH (01:30)
[2022-09-12] MEDS ORDERED: ACETAMINOPHEN TAB 650MG DOSE (2X325MG) PO PRN (01:30)
[2022-09-12] MEDS: CARVedilol 6.25 MG TAB PO SCH ×3 (03:51→21:00)
[2022-09-12 05:44] LABS: BASO % 0.3 % (0.0-1.0); EOS # 0.2 10^3/uL (0.0-0.5); EOS % 2.1 % (0.0-3.0); HEMATOCRIT 37.8 % (42.0-52.0); LYMPH # 3.1 10^3/uL (1.5-5.0); LYMPH % 26.9 % (24.0-44.0); MEAN CORPUSCULAR HEMOGLOBIN 30.2 pg (27.0-33.0); MEAN CORPUSCULAR HGB CONC 31.7 g/dl (32.0-36.5); MONO # 1.2 10^3/uL (0.0-0.8); MONO % 10.1 % (2.0-8.0); NEUTROPHILS # 6.9 10^3/uL (1.5-8.5); NEUTROPHILS % 60.2 % (36.0-66.0); PLATELET COUNT, AUTOMATED 222 10^3/uL (150-450); RED BLOOD COUNT 3.98 10^6/uL (4.30-6.10); WHITE BLOOD COUNT 11.4 10^3/uL (4.0-10.0)
[2022-09-12] MEDS ORDERED: INSULIN LISPRO (NovoLOG) PER UNIT SC SCH ×2 (06:00→21:00)
[2022-09-12 06:18] VITALS: BP 124/58; TEMP 97.2; O2SAT 99
[2022-09-12 06:36] LABS: ALBUMIN 3.6 G/DL (3.2-5.2); BILIRUBIN,TOTAL 1.3 MG/DL (0.3-1.2); CALCIUM LEVEL 8.8 MG/DL (8.3-10.6); CREATININE FOR GFR 1.42 MG/DL (0.70-1.30); MAGNESIUM LEVEL 2.4 MG/DL (1.8-2.4); TOTAL PROTEIN 6.6 G/DL (5.7-8.2)
[2022-09-12 06:40] LABS: HEMOGLOBIN A1c 7.7 % (4.0-6.0)
[2022-09-12] MEDS: FUROSEMIDE 40MG/4ML VIAL IV SCH ×2 (09:16→17:50)
[2022-09-12] MEDS: ASPIRIN 81MG CHEW TABLET PO SCH (09:19)
[2022-09-12] MEDS: TAMSULOSIN 0.4 MG CAP PO SCH (09:19)
[2022-09-12] MEDS: ASCORBIC ACID 500 MG TAB PO SCH (09:19)
[2022-09-12] MEDS: ENOXAPARIN 40MG/0.4ML SYRINGE (J1650 PER 10MG) SC SCH (09:20)
[2022-09-12] MEDS: FERROUS GLUCONATE 324 MG TAB PO SCH (09:20)
[2022-09-12] MEDS: INSULIN LISPRO (NovoLOG) PER UNIT SC SCH ×3 (09:20→17:51)
[2022-09-12 14:00] VITALS: BP 110/50; TEMP 97.9; O2SAT 96
[2022-09-12] MEDS ORDERED: ATORVASTATIN 20 MG TAB PO SCH (21:00)
[2022-09-12 21:49] VITALS: BP 122/70; TEMP 98.2; O2SAT 93
[2022-09-13 05:25] VITALS: BP 122/60; TEMP 97.9; O2SAT 98
[2022-09-13] MEDS: FERROUS GLUCONATE 324 MG TAB PO SCH (08:24)
[2022-09-13] MEDS: ENOXAPARIN 40MG/0.4ML SYRINGE (J1650 PER 10MG) SC SCH (08:24)
[2022-09-13] MEDS: FUROSEMIDE 40MG/4ML VIAL IV SCH (08:24)
[2022-09-13] MEDS: TAMSULOSIN 0.4 MG CAP PO SCH (08:24)
[2022-09-13] MEDS: INSULIN LISPRO (NovoLOG) PER UNIT SC SCH ×2 (08:24→12:04)
[2022-09-13] MEDS: ASPIRIN 81MG CHEW TABLET PO SCH (08:24)
[2022-09-13] MEDS: ASCORBIC ACID 500 MG TAB PO SCH (08:24)
[2022-09-13 08:25] VITALS: BP 122/60
[2022-09-13] MEDS: CARVedilol 6.25 MG TAB PO SCH (08:25)
[2022-09-13 08:41] LABS: BASO # 0.1 10^3/uL (0.0-0.2); BASO % 0.5 % (0.0-1.0); EOS # 0.3 10^3/uL (0.0-0.5); EOS % 2.5 % (0.0-3.0); HEMATOCRIT 38.1 % (42.0-52.0); LYMPH # 2.6 10^3/uL (1.5-5.0); LYMPH % 22.5 % (24.0-44.0); MEAN CORPUSCULAR HEMOGLOBIN 30.2 pg (27.0-33.0); MEAN CORPUSCULAR HGB CONC 31.5 g/dl (32.0-36.5); MEAN CORPUSCULAR VOLUME 95.7 fl (80.0-96.0); MONO # 1.1 10^3/uL (0.0-0.8); MONO % 9.9 % (2.0-8.0); NEUTROPHILS # 7.4 10^3/uL (1.5-8.5); NEUTROPHILS % 64.3 % (36.0-66.0); PLATELET COUNT, AUTOMATED 228 10^3/uL (150-450); RED BLOOD COUNT 3.98 10^6/uL (4.30-6.10); WHITE BLOOD COUNT 11.5 10^3/uL (4.0-10.0)
[2022-09-13 09:03] LABS: CALCIUM LEVEL 8.6 MG/DL (8.3-10.6); CREATININE FOR GFR 1.42 MG/DL (0.70-1.30); POTASSIUM SERUM 4.4 MMOL/L (3.5-5.1)
[2022-09-13] MEDS ORDERED: NYST1POW9 TOP (10:45)
[2022-09-13] MEDS ORDERED: FURO40TA2 PO (10:45)
== END 2022-09-13 15:00 | disposition home or self-care (01) | DRG 291 ==
LOC: M ED 20:47 → M ED INP 09-12 01:27 → ENRESERV 09-12 01:52 → M MSPAV 09-12 03:22
PROVIDERS: ADMIT Internal Medicine; ATTEND Family Medicine
DX: I13.0 Hypertensive heart and chronic kidney disease with heart failure and stage 1 through stage 4 chronic kidney disease, or unspecified chronic kidney disease (principal); I50.33 Acute on chronic diastolic (congestive) heart failure; J96.01 Acute respiratory failure with hypoxia; N17.9 Acute kidney failure, unspecified; E78.5 Hyperlipidemia, unspecified; I25.10 Atherosclerotic heart disease of native coronary artery without angina pectoris; E11.51 Type 2 diabetes mellitus with diabetic peripheral angiopathy without gangrene; Z99.3 Dependence on wheelchair; Z79.82 Long term (current) use of aspirin; Z79.899 Other long term (current) drug therapy; Z88.0 Allergy status to penicillin; Z88.1 Allergy status to other antibiotic agents; Z88.8 Allergy status to other drugs, medicaments and biological substances; Z91.040 Latex allergy status; D64.9 Anemia, unspecified; H35.30 Unspecified macular degeneration; N40.0 Benign prostatic hyperplasia without lower urinary tract symptoms; M10.9 Gout, unspecified; N18.9 Chronic kidney disease, unspecified; E87.5 Hyperkalemia; E11.40 Type 2 diabetes mellitus with diabetic neuropathy, unspecified; G47.33 Obstructive sleep apnea (adult) (pediatric); E11.22 Type 2 diabetes mellitus with diabetic chronic kidney disease; R59.9 Enlarged lymph nodes, unspecified; Z77.22 Contact with and (suspected) exposure to environmental tobacco smoke (acute) (chronic); Z95.2 Presence of prosthetic heart valve; Z95.1 Presence of aortocoronary bypass graft; Z98.62 Peripheral vascular angioplasty status; Z89.611 Acquired absence of right leg above knee; Z98.42 Cataract extraction status, left eye; Z89.612 Acquired absence of left leg above knee; Z98.41 Cataract extraction status, right eye

== ENCOUNTER 2022-10-06 14:32 | Emergency (ER) | payer MEDICARE ==
[~2022-10-06] VITALS: Ht 172.7 cm; Wt 99.5 kg
[~2022-10-06 14:32] MED LIST changes: +ASPI81CH33 PO; +ATOR40TA75 PO; +NYST1POW9 TOP; +TRAZ-252 PO
[2022-10-06] MEDS ORDERED: GARL3CAP4 PO (16:58)
[2022-10-06 17:14] LABS: BASO % 0.4 % (0.0-1.0); EOS # 0.1 10^3/uL (0.0-0.5); EOS % 1.3 % (0.0-3.0); HEMATOCRIT 42.1 % (42.0-52.0); HEMOGLOBIN 12.9 g/dl (13.5-17.5); LYMPH # 1.7 10^3/uL (1.5-5.0); LYMPH % 17.2 % (24.0-44.0); MEAN CORPUSCULAR HEMOGLOBIN 30.1 pg (27.0-33.0); MEAN CORPUSCULAR HGB CONC 30.6 g/dl (32.0-36.5); MEAN CORPUSCULAR VOLUME 98.4 fl (80.0-96.0); MONO # 0.9 10^3/uL (0.0-0.8); MONO % 9.1 % (2.0-8.0); NEUTROPHILS # 7.1 10^3/uL (1.5-8.5); NEUTROPHILS % 71.6 % (36.0-66.0); PLATELET COUNT, AUTOMATED 215 10^3/uL (150-450); RED BLOOD COUNT 4.28 10^6/uL (4.30-6.10); WHITE BLOOD COUNT 9.9 10^3/uL (4.0-10.0)
[2022-10-06 17:30] LABS: ALBUMIN 3.5 G/DL (3.2-5.2); ALKALINE PHOSPHATASE 122 U/L (46-116); ALT/SGPT 10 U/L (7.0-40); AST/SGOT < 8 U/L (<34); BILIRUBIN,TOTAL 1.2 MG/DL (0.3-1.2); BLOOD UREA NITROGEN 36 MG/DL (9-23); CALCIUM LEVEL 9.3 MG/DL (8.3-10.6); CARBON DIOXIDE LEVEL 25 MMOL/L (20-31); CHLORIDE LEVEL 106 MMOL/L (98-107); CREATININE FOR GFR 1.24 MG/DL (0.70-1.30); GLOMERULAR FILTRATION RATE > 60.0 (>42); GLUCOSE, FASTING 179 MG/DL (74-106); SODIUM LEVEL 141 MMOL/L (136-145)
[2022-10-06] MEDS ORDERED: FUROSEMIDE 100MG/10ML VIAL IV ONE (18:15)
[2022-10-06 20:00] VITALS: BP 142/58; TEMP 97; O2SAT 97
== END 2022-10-06 22:36 | disposition home or self-care (01) ==
LOC: M ED 14:32
DX: I50.20 Unspecified systolic (congestive) heart failure (principal); I11.9 Hypertensive heart disease without heart failure; I25.10 Atherosclerotic heart disease of native coronary artery without angina pectoris; E11.9 Type 2 diabetes mellitus without complications; E78.5 Hyperlipidemia, unspecified; G47.30 Sleep apnea, unspecified; I73.9 Peripheral vascular disease, unspecified; D64.9 Anemia, unspecified; Z95.5 Presence of coronary angioplasty implant and graft; Z88.0 Allergy status to penicillin; Z88.1 Allergy status to other antibiotic agents; Z91.040 Latex allergy status; Z88.8 Allergy status to other drugs, medicaments and biological substances; Z79.899 Other long term (current) drug therapy; Z79.82 Long term (current) use of aspirin
CPT/HCPCS: 71046; 71250; 80053; 83880; 85025; 87486; 87581; 87633; 87798; 93005; 96374; 99284; J1940

== ENCOUNTER 2022-10-13 14:59 | Emergency (ER) | payer MEDICARE ==
[~2022-10-13] VITALS: Ht 172.7 cm; Wt 100.0 kg
[~2022-10-13 14:59] MED LIST changes: +GARL3CAP4 PO
[2022-10-13 18:19] LABS: BASO % 0.5 % (0.0-1.0); EOS # 0.2 10^3/uL (0.0-0.5); EOS % 2.2 % (0.0-3.0); HEMATOCRIT 41.7 % (42.0-52.0); HEMOGLOBIN 13.2 g/dl (13.5-17.5); LYMPH # 1.7 10^3/uL (1.5-5.0); LYMPH % 20.5 % (24.0-44.0); MEAN CORPUSCULAR HEMOGLOBIN 30.4 pg (27.0-33.0); MEAN CORPUSCULAR HGB CONC 31.7 g/dl (32.0-36.5); MEAN CORPUSCULAR VOLUME 96.1 fl (80.0-96.0); MONO # 0.8 10^3/uL (0.0-0.8); MONO % 9.8 % (2.0-8.0); NEUTROPHILS # 5.5 10^3/uL (1.5-8.5); NEUTROPHILS % 66.6 % (36.0-66.0); PLATELET COUNT, AUTOMATED 229 10^3/uL (150-450); RED BLOOD COUNT 4.34 10^6/uL (4.30-6.10); WHITE BLOOD COUNT 8.2 10^3/uL (4.0-10.0)
[2022-10-13 18:51] LABS: CALCIUM LEVEL 9.1 MG/DL (8.3-10.6); CREATININE FOR GFR 1.32 MG/DL (0.70-1.30); GLOMERULAR FILTRATION RATE 56.6 (>42)
[2022-10-13] MEDS ORDERED: FUROSEMIDE 40MG/4ML VIAL IV ONE (20:05)
[2022-10-13 21:00] VITALS: BP 131/64
[2022-10-13 22:00] VITALS: TEMP 98.1; O2SAT 97
== END 2022-10-13 22:13 | disposition home or self-care (01) ==
LOC: M ED 14:59
DX: I50.20 Unspecified systolic (congestive) heart failure (principal); I11.9 Hypertensive heart disease without heart failure; E78.5 Hyperlipidemia, unspecified; E11.9 Type 2 diabetes mellitus without complications; N18.30 Chronic kidney disease, stage 3 unspecified; I73.9 Peripheral vascular disease, unspecified; N40.0 Benign prostatic hyperplasia without lower urinary tract symptoms; M19.90 Unspecified osteoarthritis, unspecified site; M10.9 Gout, unspecified; Z88.8 Allergy status to other drugs, medicaments and biological substances; Z88.0 Allergy status to penicillin; Z91.040 Latex allergy status; Z79.899 Other long term (current) drug therapy; Z79.82 Long term (current) use of aspirin
CPT/HCPCS: 36415; 71045; 80048; 83880; 84484; 85025; 93005; 93041; 94760; 96374; 99285; J1940

== ENCOUNTER 2022-10-18 12:29 | Inpatient (IN) | payer MEDICARE ==
[~2022-10-18] VITALS: Ht 172.7 cm; Wt 97.2 kg
[2022-10-18] MEDS ORDERED: ATOR40TA75 PO (13:08)
[2022-10-18 13:41] LABS: ABG BASE EXCESS -0.7 (-2.0-2.0); ABG HCO3 23.3 MMOL/L (22.0-26.0); ABG O2 SATURATION 95.4 % (95.0-99.0); ABG PARTIAL PRESSURE CO2 36.4 mmHg (35.0-45.0); ABG STANDARD HCO3 23.9 MMOL/L. (22.0-26.0); ABG TOTAL CO2 24.4 MMOL/L (23.0-31.0); ABG pH (ARTERIAL) 7.424 UNITS (7.350-7.450)
[2022-10-18 13:53] LABS: BASO # 0.1 10^3/uL (0.0-0.2); BASO % 0.5 % (0.0-1.0); EOS # 0.2 10^3/uL (0.0-0.5); EOS % 1.7 % (0.0-3.0); HEMATOCRIT 41.9 % (42.0-52.0); HEMOGLOBIN 12.9 g/dl (13.5-17.5); LYMPH # 1.6 10^3/uL (1.5-5.0); LYMPH % 16.4 % (24.0-44.0); MEAN CORPUSCULAR HEMOGLOBIN 29.8 pg (27.0-33.0); MEAN CORPUSCULAR HGB CONC 30.8 g/dl (32.0-36.5); MEAN CORPUSCULAR VOLUME 96.8 fl (80.0-96.0); MONO # 0.9 10^3/uL (0.0-0.8); MONO % 8.7 % (2.0-8.0); NEUTROPHILS # 7.1 10^3/uL (1.5-8.5); NEUTROPHILS % 72.3 % (36.0-66.0); PLATELET COUNT, AUTOMATED 237 10^3/uL (150-450); RED BLOOD COUNT 4.33 10^6/uL (4.30-6.10); WHITE BLOOD COUNT 9.8 10^3/uL (4.0-10.0)
[2022-10-18 14:02] LABS: INR 1.2; PROTHROMBIN TIME 14.8 SECONDS (12.5-14.5)
[2022-10-18 14:15] LABS: CK-MB VALUE MASS < 1.0 NG/ML (<3.6)
[2022-10-18 14:17] LABS: ALBUMIN 3.5 G/DL (3.2-5.2); ALKALINE PHOSPHATASE 105 U/L (46-116); ALT/SGPT 15 U/L (7.0-40); AST/SGOT 9 U/L (<34); BILIRUBIN,DIRECT 0.4 MG/DL (<0.4); BILIRUBIN,TOTAL 0.8 MG/DL (0.3-1.2); BLOOD UREA NITROGEN 38 MG/DL (9-23); CALCIUM LEVEL 8.7 MG/DL (8.3-10.6); CARBON DIOXIDE LEVEL 23 MMOL/L (20-31); CHLORIDE LEVEL 104 MMOL/L (98-107); CPK CREATINE PHOSPHOKINASE 20 U/L (46-171); CREATININE FOR GFR 1.45 MG/DL (0.70-1.30); GLOMERULAR FILTRATION RATE 50.8 (>42); GLUCOSE, FASTING 222 MG/DL (74-106); SODIUM LEVEL 137 MMOL/L (136-145); TOTAL PROTEIN 6.7 G/DL (5.7-8.2)
[2022-10-18] MEDS ORDERED: ISOVUE-370 76% 100ML VIAL As Ordered ONE (14:56)
[2022-10-18 15:56] LABS: CK-MB VALUE MASS < 1.0 NG/ML (<3.6)
[2022-10-18 15:58] LABS: CPK CREATINE PHOSPHOKINASE 21 U/L (46-171); MB/CK RELATIVE INDEX 4.76 (< OR =4)
[2022-10-18] MEDS ORDERED: FUROSEMIDE 40MG/4ML VIAL IV ONE (17:20)
[2022-10-18] MEDS ORDERED: MED REC IN PROGRESS XX SCH (17:25)
[2022-10-18 17:39] LABS: CK-MB VALUE MASS < 1.0 NG/ML (<3.6)
[2022-10-18 17:40] LABS: CPK CREATINE PHOSPHOKINASE 21 U/L (46-171); MB/CK RELATIVE INDEX 4.76 (< OR =4)
[2022-10-18] MEDS ORDERED: METF-839 PO (17:57)
[2022-10-18] MEDS ORDERED: HOME MED LIST COMPLETE! XX SCH (18:25)
[2022-10-18] MEDS ORDERED: COLCHICINE 0.6 MG TABLET PO PRN (18:35)
[2022-10-18] MEDS ORDERED: traZODone 50 MG TAB PO PRN (18:35)
[2022-10-18] MEDS ORDERED: GLUCAGON INJ 1MG VIAL SC PRN (18:55)
[2022-10-18] MEDS ORDERED: DEXTROSE 50% 50ML SYRINGE IV PRN (18:55)
[2022-10-18] MEDS ORDERED: GLUCOSE 4GM CHEW TABLET PO PRN (18:55)
[2022-10-18 20:18] VITALS: BP 114/68; TEMP 97.6; O2SAT 98
[2022-10-18] MEDS: INSULIN LISPRO (NovoLOG) PER UNIT SC SCH (22:00)
[2022-10-18] MEDS ORDERED: FUROSEMIDE 40MG/4ML VIAL IV SCH (23:00)
[2022-10-18 23:32] VITALS: BP 116/74; TEMP 97; O2SAT 100
[2022-10-19 00:36] LABS: CK-MB VALUE MASS < 1.0 NG/ML (<3.6)
[2022-10-19 00:37] LABS: CPK CREATINE PHOSPHOKINASE 20 U/L (46-171)
[2022-10-19 04:00] VITALS: BP 117/69; TEMP 97; O2SAT 98
[2022-10-19 06:25] LABS: HEMATOCRIT 41.8 % (42.0-52.0); HEMOGLOBIN 13.1 g/dl (13.5-17.5); MEAN CORPUSCULAR HEMOGLOBIN 30.7 pg (27.0-33.0); MEAN CORPUSCULAR HGB CONC 31.3 g/dl (32.0-36.5); MEAN CORPUSCULAR VOLUME 97.9 fl (80.0-96.0); PLATELET COUNT, AUTOMATED 219 10^3/uL (150-450); RED BLOOD COUNT 4.27 10^6/uL (4.30-6.10); WHITE BLOOD COUNT 8.5 10^3/uL (4.0-10.0)
[2022-10-19 06:31] LABS: CK-MB VALUE MASS < 1.0 NG/ML (<3.6)
[2022-10-19 06:32] LABS: BLOOD UREA NITROGEN 40 MG/DL (9-23); CALCIUM LEVEL 8.7 MG/DL (8.3-10.6); CARBON DIOXIDE LEVEL 24 MMOL/L (20-31); CHLORIDE LEVEL 105 MMOL/L (98-107); CHOLESTEROL LEVEL 99 MG/DL (<200); CREATININE FOR GFR 1.59 MG/DL (0.70-1.30); GLOMERULAR FILTRATION RATE 45.7 (>42); GLUCOSE, FASTING 104 MG/DL (74-106); HDL CHOLESTEROL 20.6 MG/DL (>40); LDL CHOLESTEROL 57.2 MG/DL (<100); MAGNESIUM LEVEL 2.2 MG/DL (1.8-2.4); NON-HDL-C 78.4 MG/DL; POTASSIUM SERUM 4.6 MMOL/L (3.5-5.1); SODIUM LEVEL 140 MMOL/L (136-145); TRIGLYCERIDES LEVEL 106 MG/DL (<150)
[2022-10-19 06:34] LABS: THYROID STIMULATING HORMONE 2.184 uIU/ML (0.55-4.78); THYROXINE (T4) 9.4 UG/DL (4.5-10.9)
[2022-10-19 06:35] LABS: FREE THYROXINE INDEX 4.2 % (1.4-3.8); T UPTAKE 45.1 % (22.5-37.0)
[2022-10-19 06:38] LABS: CPK CREATINE PHOSPHOKINASE 27 U/L (46-171)
[2022-10-19 06:45] LABS: HEMOGLOBIN A1c 7.2 % (4.0-6.0)
[2022-10-19 06:58] VITALS: BP 125/59
[2022-10-19 08:00] VITALS: TEMP 96.6; O2SAT 94
[2022-10-19] MEDS: INSULIN LISPRO (NovoLOG) PER UNIT SC SCH ×4 (08:16→21:00)
[2022-10-19] MEDS: ASPIRIN 81MG CHEW TABLET PO SCH (08:17)
[2022-10-19] MEDS: TAMSULOSIN 0.4 MG CAP PO SCH (08:17)
[2022-10-19] MEDS: ENOXAPARIN 30MG/0.3ML SYRINGE (J1650 PER 10MG) SC SCH (08:17)
[2022-10-19] MEDS: FERROUS GLUCONATE 324 MG TAB PO SCH (08:18)
[2022-10-19] MEDS: ASCORBIC ACID 500 MG TAB PO SCH (08:28)
[2022-10-19 09:59] LABS: FERRITIN 63.8 NG/ML (10.5-307.3)
[2022-10-19 10:00] LABS: TOTAL 25(OH) VITAMIN D 42.3 NG/ML (20.0-100.0); VITAMIN B12 LEVEL 324 PG/ML (211-911)
[2022-10-19 10:03] LABS: IRON (FE) 44 UG/DL (65-175); PERCENT SATURATION 14.2 % (19.7-50.0); TOTAL IRON BINDING CAPACITY 310 UG/DL (250-425)
[2022-10-19 10:04] LABS: FOLATE > 24.0 NG/ML (>5.4)
[2022-10-19] MEDS: FUROSEMIDE 100MG/10ML VIAL IV SCH ×2 (10:22→16:29)
[2022-10-19 11:47] VITALS: BP 122/57; TEMP 97.6; O2SAT 96
[2022-10-19 16:00] VITALS: BP 124/55; TEMP 98.6; O2SAT 98
[2022-10-19 16:07] LABS: PROTEIN, URINE AUTO NEGATIVE (NEGATIVE)
[2022-10-19 16:37] LABS: CREATININE,RANDOM URINE 21.3 MG/DL
[2022-10-19 20:15] VITALS: BP 144/65; TEMP 97; O2SAT 94
[2022-10-19] MEDS: CARVedilol 6.25 MG TAB PO SCH (21:13)
[2022-10-19] MEDS ORDERED: BISACODYL 5MG TAB PO ONE (22:00)
[2022-10-20] VITALS (8 sets, daily range): BP systolic 115–148; BP diastolic 57–72; TEMP 96.7–98; O2SAT 93–97
[2022-10-20] MEDS ORDERED: UNRESOLVED PATIENT OWN MED ORDER XX SCH (00:01)
[2022-10-20 05:22] LABS: HEMATOCRIT 40.3 % (42.0-52.0); HEMOGLOBIN 12.7 g/dl (13.5-17.5); MEAN CORPUSCULAR HEMOGLOBIN 30.2 pg (27.0-33.0); MEAN CORPUSCULAR HGB CONC 31.5 g/dl (32.0-36.5); PLATELET COUNT, AUTOMATED 225 10^3/uL (150-450); WHITE BLOOD COUNT 8.8 10^3/uL (4.0-10.0)
[2022-10-20 05:48] LABS: CALCIUM LEVEL 9.1 MG/DL (8.3-10.6); CREATININE FOR GFR 1.67 MG/DL (0.70-1.30); GLOMERULAR FILTRATION RATE 43.1 (>42); MAGNESIUM LEVEL 2.2 MG/DL (1.8-2.4); POTASSIUM SERUM 3.8 MMOL/L (3.5-5.1)
[2022-10-20] MEDS: INSULIN LISPRO (NovoLOG) PER UNIT SC SCH ×4 (08:55→20:32)
[2022-10-20] MEDS: FUROSEMIDE 100MG/10ML VIAL IV SCH (08:55)
[2022-10-20] MEDS: CARVedilol 6.25 MG TAB PO SCH ×2 (08:56→20:37)
[2022-10-20] MEDS: ASPIRIN 81MG CHEW TABLET PO SCH (08:56)
[2022-10-20] MEDS: FERROUS GLUCONATE 324 MG TAB PO SCH (08:56)
[2022-10-20] MEDS: ENOXAPARIN 30MG/0.3ML SYRINGE (J1650 PER 10MG) SC SCH (08:56)
[2022-10-20] MEDS: TAMSULOSIN 0.4 MG CAP PO SCH (08:56)
[2022-10-20] MEDS: ASCORBIC ACID 500 MG TAB PO SCH (08:56)
[2022-10-20] MEDS: DAPAGLIFLOZIN PROPANEDIOL 10MG TABLET (FARXIGA) PO SCH (08:57)
[2022-10-20] MEDS ORDERED: PILL CUTTER 1 EACH XX ONE (09:07)
[2022-10-20] MEDS ORDERED: FERRIC CARBOXYMALTOSE INJ 750 MG, VIAL MATE ADAPTER 1 EACH in NS 250 ML IV ONE (12:00)
[2022-10-20] MEDS: CYANOCOBALAMIN 500 MCG TAB PO SCH (12:46)
[2022-10-20] MEDS ORDERED: POTASSIUM CHLORIDE 10MEQ SR TABLET PO ONE (16:00)
[2022-10-20 16:07] LABS: IONIZED CALCIUM 4.3 MG/DL (4.5-5.3)
[2022-10-20 16:45] LABS: CK-MB VALUE MASS < 1.0 NG/ML (<3.6)
[2022-10-20 16:47] LABS: MAGNESIUM LEVEL 2.2 MG/DL (1.8-2.4); POTASSIUM SERUM 3.9 MMOL/L (3.5-5.1)
[2022-10-20 16:51] LABS: CPK CREATINE PHOSPHOKINASE 30 U/L (46-171); MB/CK RELATIVE INDEX 3.33 (< OR =4)
[2022-10-20] MEDS: TORSEMIDE (DEMADEX) 50 MG PER 1/2 TAB PO SCH (16:59)
[2022-10-20] MEDS: NYSTATIN 100000 UNIT/GM TOP SCH (20:37)
[2022-10-21 01:40] LABS: MAGNESIUM LEVEL 2.1 MG/DL (1.8-2.4)
[2022-10-21 03:50] VITALS: BP 134/64; TEMP 97.4; O2SAT 95
[2022-10-21 06:26] LABS: HEMATOCRIT 41.4 % (42.0-52.0); HEMOGLOBIN 12.9 g/dl (13.5-17.5); MEAN CORPUSCULAR HEMOGLOBIN 30.2 pg (27.0-33.0); MEAN CORPUSCULAR HGB CONC 31.2 g/dl (32.0-36.5); PLATELET COUNT, AUTOMATED 207 10^3/uL (150-450); RED BLOOD COUNT 4.27 10^6/uL (4.30-6.10); WHITE BLOOD COUNT 8.5 10^3/uL (4.0-10.0)
[2022-10-21 06:53] LABS: CALCIUM LEVEL 8.9 MG/DL (8.3-10.6); CREATININE FOR GFR 1.54 MG/DL (0.70-1.30); GLOMERULAR FILTRATION RATE 47.4 (>42); MAGNESIUM LEVEL 2.1 MG/DL (1.8-2.4)
[2022-10-21 07:50] VITALS: BP 112/55; TEMP 96.6; O2SAT 94
[2022-10-21] MEDS ORDERED: CALCIUM GLUCONATE 1,000 MG in D5W MINI-BAG PLUS 100 ML IV ONE (08:00)
[2022-10-21] MEDS: TORSEMIDE (DEMADEX) 50 MG PER 1/2 TAB PO SCH ×2 (08:49→16:18)
[2022-10-21] MEDS: ASCORBIC ACID 500 MG TAB PO SCH (08:50)
[2022-10-21] MEDS: ENOXAPARIN 30MG/0.3ML SYRINGE (J1650 PER 10MG) SC SCH (08:50)
[2022-10-21] MEDS: ASPIRIN 81MG CHEW TABLET PO SCH (08:50)
[2022-10-21] MEDS: DAPAGLIFLOZIN PROPANEDIOL 10MG TABLET (FARXIGA) PO SCH (08:50)
[2022-10-21] MEDS: TAMSULOSIN 0.4 MG CAP PO SCH (08:50)
[2022-10-21] MEDS: CYANOCOBALAMIN 500 MCG TAB PO SCH (08:50)
[2022-10-21 08:51] VITALS: BP 112/55
[2022-10-21] MEDS: FERROUS GLUCONATE 324 MG TAB PO SCH (08:51)
[2022-10-21] MEDS: CARVedilol 6.25 MG TAB PO SCH (08:51)
[2022-10-21] MEDS ORDERED: METOPROLOL TART 25 MG TABLET PO SCH (09:00)
[2022-10-21] MEDS ORDERED: POTASSIUM CHLORIDE 10MEQ SR TABLET PO SCH (09:00)
[2022-10-21] MEDS: INSULIN LISPRO (NovoLOG) PER UNIT SC SCH ×2 (09:00→13:39)
[2022-10-21] MEDS: NYSTATIN 100000 UNIT/GM TOP SCH (09:01)
[2022-10-21 11:38] VITALS: BP 150/64; TEMP 98; O2SAT 95
[2022-10-21] MEDS ORDERED: TORS100T PO (14:10)
[2022-10-21] MEDS ORDERED: POTA-136 PO (14:38)
== END 2022-10-21 16:56 | disposition home health service (06) | DRG 291 ==
LOC: M ED 12:29 → M ED INP 17:23 → M PCU 19:58
PROVIDERS: ADMIT General Practice; ATTEND General Practice
DX: I13.0 Hypertensive heart and chronic kidney disease with heart failure and stage 1 through stage 4 chronic kidney disease, or unspecified chronic kidney disease (principal); I50.43 Acute on chronic combined systolic (congestive) and diastolic (congestive) heart failure; J96.11 Chronic respiratory failure with hypoxia; N18.30 Chronic kidney disease, stage 3 unspecified; I27.20 Pulmonary hypertension, unspecified; I08.1 Rheumatic disorders of both mitral and tricuspid valves; E11.51 Type 2 diabetes mellitus with diabetic peripheral angiopathy without gangrene; E11.42 Type 2 diabetes mellitus with diabetic polyneuropathy; E78.5 Hyperlipidemia, unspecified; I25.10 Atherosclerotic heart disease of native coronary artery without angina pectoris; I25.5 Ischemic cardiomyopathy; H35.30 Unspecified macular degeneration; N40.0 Benign prostatic hyperplasia without lower urinary tract symptoms; M10.9 Gout, unspecified; E11.22 Type 2 diabetes mellitus with diabetic chronic kidney disease; D35.02 Benign neoplasm of left adrenal gland; E83.51 Hypocalcemia; K80.20 Calculus of gallbladder without cholecystitis without obstruction; D63.8 Anemia in other chronic diseases classified elsewhere; G47.00 Insomnia, unspecified; I49.3 Ventricular premature depolarization; M19.90 Unspecified osteoarthritis, unspecified site; Z99.81 Dependence on supplemental oxygen; Z95.820 Peripheral vascular angioplasty status with implants and grafts; Z79.82 Long term (current) use of aspirin; Z79.84 Long term (current) use of oral hypoglycemic drugs; Z79.899 Other long term (current) drug therapy; Z89.612 Acquired absence of left leg above knee; Z88.0 Allergy status to penicillin; Z91.040 Latex allergy status; Z88.1 Allergy status to other antibiotic agents; Z88.8 Allergy status to other drugs, medicaments and biological substances; Z98.41 Cataract extraction status, right eye; Z89.611 Acquired absence of right leg above knee; Z95.3 Presence of xenogenic heart valve; Z98.42 Cataract extraction status, left eye; Z96.652 Presence of left artificial knee joint

== ENCOUNTER → 2022-11-01 | Outpatient (REF) | payer MEDICARE ==
[~2022-11-01] MED LIST changes: +METF-839 PO; +POTA-136 PO; +TORS100T PO
[2022-11-01 18:19] LABS: ALBUMIN 3.5 G/DL (3.2-5.2); ALKALINE PHOSPHATASE 114 U/L (46-116); ALT/SGPT 12 U/L (7.0-40); AST/SGOT < 8 U/L (<34); BILIRUBIN,TOTAL 0.7 MG/DL (0.3-1.2); BLOOD UREA NITROGEN 51 MG/DL (9-23); CALCIUM LEVEL 8.8 MG/DL (8.3-10.6); CARBON DIOXIDE LEVEL 26 MMOL/L (20-31); CHLORIDE LEVEL 102 MMOL/L (98-107); CREATININE FOR GFR 1.76 MG/DL (0.70-1.30); GLOMERULAR FILTRATION RATE 40.6 (>42); GLUCOSE, FASTING 160 MG/DL (74-106); POTASSIUM SERUM 4.8 MMOL/L (3.5-5.1); SODIUM LEVEL 138 MMOL/L (136-145); TOTAL PROTEIN 7.1 G/DL (5.7-8.2)
== END ==
LOC: M SFHCCLAY 13:33
PROVIDERS: ATTEND Family Medicine
DX: I50.9 Heart failure, unspecified (principal)

== ENCOUNTER → 2022-11-19 | Outpatient (CLI) | payer MEDICARE | LOC: M RAD 15:33 | PROVIDERS: ATTEND Internal Medicine | DX: I27.20 Pulmonary hypertension, unspecified (principal) ==

== ENCOUNTER 2022-11-28 18:54 | Emergency (ER) | payer MEDICARE ==
[~2022-11-28] VITALS: Ht 116.8 cm; Wt 101.9 kg
[2022-11-28 19:07] VITALS: TEMP 96.2
[2022-11-28 19:36] LABS: VENOUS BASE EXCESS -2.2 (-2.0-2.0); VENOUS O2 SATURATION 82.3 % (60.0-80.0); VENOUS PARTIAL PRESSURE CO2 46.2 mmHg (38.0-50.0); VENOUS PARTIAL PRESSURE O2 50.5 mmHg (30.0-50.0); VENOUS PH 7.334 UNITS (7.330-7.430); VENOUS STANDARD HCO3 22.3 MMOL/L; VENOUS TOTAL CO2 25.4 MMOL/L (24.0-28.0)
[2022-11-28 19:41] LABS: BASO % 0.4 % (0.0-1.0); EOS # 0.2 10^3/uL (0.0-0.5); EOS % 2.1 % (0.0-3.0); HEMATOCRIT 49.3 % (42.0-52.0); HEMOGLOBIN 15.7 g/dl (13.5-17.5); LYMPH # 2.1 10^3/uL (1.5-5.0); LYMPH % 19.3 % (24.0-44.0); MEAN CORPUSCULAR HEMOGLOBIN 30.3 pg (27.0-33.0); MEAN CORPUSCULAR HGB CONC 31.8 g/dl (32.0-36.5); MEAN CORPUSCULAR VOLUME 95.2 fl (80.0-96.0); MONO # 0.7 10^3/uL (0.0-0.8); MONO % 6.9 % (2.0-8.0); NEUTROPHILS # 7.5 10^3/uL (1.5-8.5); NEUTROPHILS % 70.5 % (36.0-66.0); PLATELET COUNT, AUTOMATED 217 10^3/uL (150-450); RED BLOOD COUNT 5.18 10^6/uL (4.30-6.10); WHITE BLOOD COUNT 10.7 10^3/uL (4.0-10.0)
[2022-11-28 19:44] LABS: INR 1.24; PROTHROMBIN TIME 15.3 SECONDS (12.5-14.5)
[2022-11-28 19:45] LABS: PARTIAL THROMBOPLASTIN TIME 29.9 SECONDS (24.8-34.2)
[2022-11-28 19:58] LABS: ETHYL ALCOHOL (ETHANOL) < 0.003 % (0.000-0.010)
[2022-11-28 20:01] LABS: BLOOD UREA NITROGEN 50 MG/DL (9-23); CALCIUM LEVEL 8.8 MG/DL (8.3-10.6); CARBON DIOXIDE LEVEL 21 MMOL/L (20-31); CHLORIDE LEVEL 99 MMOL/L (98-107); CK-MB VALUE MASS < 1.0 NG/ML (<3.6); CPK CREATINE PHOSPHOKINASE 35 U/L (46-171); CREATININE FOR GFR 1.62 MG/DL (0.70-1.30); FREE T4 1.08 NG/DL (0.89-1.76); GLOMERULAR FILTRATION RATE 44.7 (>42); GLUCOSE, FASTING 436 MG/DL (74-106); MAGNESIUM LEVEL 2.7 MG/DL (1.8-2.4); MB/CK RELATIVE INDEX 2.85 (< OR =4); POTASSIUM SERUM 6.6 MMOL/L (3.5-5.1); SODIUM LEVEL 131 MMOL/L (136-145); THYROID STIMULATING HORMONE 3.254 uIU/ML (0.55-4.78)
[2022-11-28] MEDS ORDERED: HumuLIN R (REGULAR) INSULIN (NovoLIN R) **100U/ML** PER UNIT IV ONE (20:05)
[2022-11-28] MEDS ORDERED: ONDANSETRON 4MG 2ML VIAL IV ONE (20:05)
[2022-11-28] MEDS ORDERED: CALCIUM GLUCONATE 1,000 MG in D5W MINI-BAG PLUS 100 ML IV ONE (20:05)
[2022-11-28 21:27] LABS: CK-MB VALUE MASS < 1.0 NG/ML (<3.6)
[2022-11-28 21:31] VITALS: BP 117/78; O2SAT 97
[2022-11-28 21:31] LABS: CPK CREATINE PHOSPHOKINASE 37 U/L (46-171)
== END 2022-11-28 21:46 | disposition short-term general hospital (02) ==
LOC: M ED 18:54 → EDBD 18:54 → M ED 21:46
DX: I44.1 Atrioventricular block, second degree (principal); R55 Syncope and collapse; I25.10 Atherosclerotic heart disease of native coronary artery without angina pectoris; I50.9 Heart failure, unspecified; I10 Essential (primary) hypertension; Z95.5 Presence of coronary angioplasty implant and graft; Z95.4 Presence of other heart-valve replacement; Z79.899 Other long term (current) drug therapy; Z88.0 Allergy status to penicillin; Z88.1 Allergy status to other antibiotic agents; Z88.8 Allergy status to other drugs, medicaments and biological substances; Z91.040 Latex allergy status
CPT/HCPCS: 36415; 71045; 80048; 82077; 82550; 82553; 82803; 83605; 83735; 84439; 84443; 84484; 85025; 85610; 85730; 87486; 87581; 87633; 87798; 93005; 93041; 94760; 96374; 96375; 99285; J0612; J1815; J2405

== ENCOUNTER → 2022-12-23 | Outpatient (CLI) | payer MEDICARE | LOC: M SOG 07:57 | PROVIDERS: ATTEND Orthopaedic Surgery | DX: M17.12 Unilateral primary osteoarthritis, left knee (principal); Z95.828 Presence of other vascular implants and grafts; Z89.512 Acquired absence of left leg below knee ==

== ENCOUNTER 2023-02-27 00:36 | Emergency (ER) | payer MEDICARE ==
[~2023-02-27 00:36] MED LIST changes: +APAP325T4 PO; +LACT20EL PO; +LIDO1PAD TOP; +MELO7.5T35; +NORT10CA2 PO; +OXYC-517 PO
== END 2023-02-27 05:29 | disposition expired ==
LOC: M ED 00:36
DX: I46.9 Cardiac arrest, cause unspecified (principal); E11.9 Type 2 diabetes mellitus without complications; Z86.79 Personal history of other diseases of the circulatory system; Z88.0 Allergy status to penicillin; Z88.1 Allergy status to other antibiotic agents; Z91.040 Latex allergy status; Z79.82 Long term (current) use of aspirin; Z79.4 Long term (current) use of insulin; Z79.899 Other long term (current) drug therapy